=== PATIENT | female | born 1985 | race Caucasian/White ===

== ENCOUNTER 2018-01-19 22:10 | Inpatient (IN) | payer BC ==
[~2018-01-19] VITALS: Ht 167.6 cm; Wt 110.2 kg
[~2018-01-19 22:10] MED LIST: BLISOVI 24 FE1 EACH PO; COREG12.5 M1 PO; FLEXERIL10 MG PO; ULTRAM50 MG PO
[2018-01-20 11:34] VITALS: BP 151/99
[2018-01-20 16:55] VITALS: BP 187/105
[2018-01-20 17:52] VITALS: BP 163/95
[2018-01-20 20:21] VITALS: BP 154/84
[2018-01-21 00:11] VITALS: BP 167/82
[2018-01-21 03:49] VITALS: BP 168/83
[2018-01-21 07:04] LABS: HEMOGLOBIN 15.5 G/DL (11.9-15.5); MCH 28.8 PG (29.0-34.0); MCHC 34.4 G/DL (30.0-36.0); MCV 83.5 FL (83-99); PLATELET COUNT 236 K/uL (156-360); RBC DIS.WIDTH-CV 11.9 % (11.8-14.6); RED BLOOD COUNT 5.39 M/uL (3.80-5.20); WHITE BLOOD COUNT 14.2 K/uL (4.1-10.2)
[2018-01-21 07:34] LABS: CHLORIDE 99 MEQ/L (99-109); CREATININE 0.8 MG/DL (0.6-1.3); GFR ESTIMATE (CALCULATED) > 59 mL/min/; GLUCOSE 171 mg/dL (70-99); MAGNESIUM 1.9 mg/dl (1.3-2.7); PHOSPHORUS 3.2 mg/dL (2.5-4.9); POTASSIUM 4.7 MEQ/L (3.7-5.4); SODIUM 136 MEQ/L (136-147); UREA NITROGEN (BUN) 10 mg/dL (9-23)
[2018-01-21 07:38] VITALS: BP 152/70
[2018-01-21 11:50] VITALS: BP 168/87
== END 2018-01-21 15:08 | disposition home or self-care (01) | DRG 621 ==
LOC: ENRESERV 22:10 → 2SOUTH 01-20 08:36 → ENRESERV 01-20 15:22 → 2SOUTH 01-20 15:33 → ENRESERV 01-20 16:21 → 2EAST 01-20 16:46
PROVIDERS: Surgery
PROC: 0DB64Z3 Excision of Stomach, Percutaneous Endoscopic Approach, Vertical (ICD-10-PCS; principal; 2018-01-20)
DX: E66.01 Morbid (severe) obesity due to excess calories (principal); Z68.41 Body mass index [BMI] 40.0-44.9, adult; I10 Essential (primary) hypertension; Z87.891 Personal history of nicotine dependence
CPT/HCPCS: 80048; 82948; 83735; 84100; 85027; C9113; J0131; J0360; J0690; J1100; J1170; J1644; J1650; J2250; J2405; J2550; J2710; J2765; J3480; J7120; J7643; Q0169; Q0175; S0020